=== PATIENT | female | born 1965 | race Caucasian/White ===

== ENCOUNTER 2019-08-09 07:21 | Outpatient (REF) | payer SELFPAY ==
[2019-08-09 11:33] LABS: Chol HDL Ratio 6.32 mg/dL (0.0-4.40); Cholesterol 240 mg/dL (0-200); Glucose 105 mg/dL (65-115); HDL Cholesterol 38 mg/dL (60-100); LDL Cholesterol Calculated 167 mg/dL (50-129); LDL HDL Ratio 4.39 RATIO (0.00-3.22); Triglycerides 173 mg/dL (0-150)
[2019-08-09 11:57] LABS: Estmated Average Glucose 146; Hemoglobin A1C 6.7 % (4.0-6.0)
== END 2019-08-09 07:22 | disposition home or self-care (01) ==
LOC: LAB 07:21
PROVIDERS: Visit Provider Dermatology
DX: Z01.89 Encounter for other specified special examinations (principal)
CPT/HCPCS: 80061; 82947; 83036

== ENCOUNTER 2020-01-21 09:01 | Outpatient (CLI) | payer SELFPAY ==
--- NOTE | 2020-01-21 09:16 | MM_ITS ---
WS: [id number] BILATERAL DIGITAL DIAGNOSTIC MAMMOGRAM MAMMOGRAPHY WITH CAD CLINICAL INFORMATION: LT BREAST MASS COMPARISON: None. TECHNIQUE: Bilateral CC, MLO, and ML views. FINDINGS: The breasts are composed of heterogeneous fibroglandular density, which can limit the detection of sm all underlying mass lesions. Palpable marker upper outer left breast. Large area of diffuse increased parenchymal density upper outer left breast with trabecular thickening. This is due to the palpable marker. Calcifications and parenchymal thickening extends into the anterior breast. Ultrasound is pen ding. Diffuse punctate and suspicious pleomorphic calcifications associated with the left breast larg e asymmetric density ULTRASOUND BREAST LEFT TECHNIQUE: Ultrasound left breast focused area of concern. CLINICAL INFORMATION: LT BREAST MASS COMPARISON: None. FINDINGS: Large heterogeneous infiltrating breast mass 1:00 position 6 cm from the nipple with multifocal areas of dense hypoechoic shadowing suspicious for multifocal disease. Borders are difficult to define due to size of the mass. This occupies the majority of the upper outer quadrant extending anteriorly tow ards the nipple. Dilated subareolar ducts. Diffuse increased vascularity. Multifocal areas of dense h ypoechoic shadowing. Largest palpable area measures approximately 6.0 x 2.5 x 5.1 cm. Enlarged abnormal-appearing lymph nodes in the left axilla with increased vascularity measuring 1.8 x 0.6 x 2.1 CM. Additional lymph node measuring 1.7 x 1.6 CCM. Largest lymph node measuring 3.1 x 1.0 1.6 cm. Comparison Normal-appearing lymph nodes right axilla. MM/[id number] IMPRESSION: BI-RADS: 5-Highly Suggestive of Malignancy FOLLOW UP: US Guided Biopsy Recommended
== END 2020-01-21 09:02 | disposition home or self-care (01) ==
PROVIDERS: PCP Nurse Practitioner Family; Visit Provider Nurse Practitioner Family
DX: N63.21 Unspecified lump in the left breast, upper outer quadrant (principal)
CPT/HCPCS: 76642; 77066